=== PATIENT | male | born 1980 | race Caucasian/White ===

== ENCOUNTER 2019-02-27 16:37 | Outpatient (CLI) | END 2019-02-27 16:38 | disposition home or self-care (01) | LOC: RHC-LAB 16:37 → FCC-LAB 16:38 | PROVIDERS: ATTEND Family Medicine | DX: R56.9 Unspecified convulsions (principal); W57.XXXA Bitten or stung by nonvenomous insect and other nonvenomous arthropods, initial encounter | CPT/HCPCS: 36415; 86757; 87798 ==